=== PATIENT | male | born 2005 | race Caucasian/White ===

== ENCOUNTER 2024-10-27 15:10 | Outpatient (AMB) | payer MEDICAID, SELFPAY ==
--- NOTE | 2024-10-27 13:56 | MHC.OFFVIS ---
Vital Signs 10/27/24 15:44 Height 5 ft 11.85 in Weight 154 lb 4 oz BMI 21.0 BP 112/64 Blood Pressure Location Rt brachial Position Sitting Pulse 83 Pulse Source Pulse Oximeter Pulse Oximetry (%) 96 Oxygen Delivery Method Room Air Intake Visit Reasons: asthma Allergies No Known Allergies Allergy (Verified 10/27/24 15:45) HPI HPI asthma: Details: Iftikhar is a pleasant 19 year old male, former minimal tobacco smoker, current marijuana use with underlying asthma, environmental allergies and eczema. 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 Prior records indicate mild intermittent asthma. Last spirometry performed 2023, essentially normal. He reports asthma was diagnosed as a child, never requiring intubations or hospitalizations related to respiratory distress. He has been using Flovent and albuterol MDI with good effect. He does admit that he does not use Flovent consistently, however feels his respiratory symptoms are controlled at this time. He reports seasonal allergies, previously underwent allergen immunotherapy. He does not use any antihistamines. He does have a dog at home. He reports occupational exposures working in [employer], often using a mask to minimize dust exposures. He reports mother and sister with history of asthma. [facility] Social History (Updated 10/27/24 @ 15:48 by Yuki Dumont [facility]) Patient Tobacco Use Status: Former Tobacco user Review of Systems Const Denies chills, Denies excessive sweating, Denies fever(s), Denies headache(s) and Denies night sweats Eyes Denies dry eyes, Denies irritation and Denies itchy eyes ENT Reports Normal hearing present, Denies headache(s), Denies nasal congestion, Denies nasal discharge, Denies post nasal drip and Denies sore throat Card Denies chest pain, Denies chest pain at rest, Denies chest pain with activity, Denies claudication, Denies leg edema, Denies dyspnea, Denies dyspnea on exertion, Denies orthopnea and Denies paroxysmal nocturnal dyspnea Resp Denies chest congestion, Denies cough, Denies excessive phlegm production, Denies pain on inspiration, Denies pain with cough, Denies dyspnea, Denies dyspnea on exertion, Denies stridor and Denies wheezing Musc Denies myalgias Neuro Reports Normal hearing present and Denies headache(s) Endo Denies excessive sweating Benji/Lymph Denies lymphadenopathy Aller/Immun Denies itchy eyes, Denies seasonal rhinorrhea and Denies wheezing Physical Exam Vital Signs: Last Vital Signs Pulse 83 10/27/24 15:44 BP 112/64 10/27/24 15:44 Pulse Ox 96 10/27/24 15:44 Oxygen Delivery Method Room Air 10/27/24 15:44 BMI result Body Mass Index 21.0 Const General: cooperative, healthy appearing, comfortable, no acute distress, well developed and alert Orientation/consciousness: patient oriented x3 Limitations: no limitations HEENT Head: Yes normal to inspection, Yes normocephalic and Yes atraumatic Ears: hearing grossly normal bilaterally and external ears normal Eyes General: appearance normal, both eyes and all related structures Eyelids: Yes eyelids normal Sclerae: sclerae normal EOM: EOMs intact bilaterally Neck Neck: Yes normal visual inspection and Yes no lymphadenopathy Lymphatic: no lymphadenopathy noted Chest Chest palpation & inspection: normal inspection of the chest Resp Effort & Inspection: normal respiratory effort, able to speak in complete sentences, no audible wheezes, no cough, no stridor, not tachypneic, no tripod positioning and no use of accessory muscles Auscultation: clear to auscultation bilaterally Cardio Jugular venous distension: no JVD Rate: regular rate Rhythm: regular rhythm Skin Other: warm, dry General skin exam: no rashes or lesions noted Neuro General: patient oriented x3 Cranial nerves: Yes Normal hearing present Cognition (Neuro): normal cognition Gait exam (Neuro): Normal gait present Extrem General: Yes normal to inspection, Yes capillary refill normal, Yes no clubbing, cyanosis or edema and Yes no pedal edema Psych Appearance: grossly normal and well kempt Speech and movement: Normal speech and movement present and Clear speech present Affect: normal affect Attitude: cooperative Thought process: Normal thought process present Thought content: Normal thought content present Insight: Good insight present (Psych) Judgement: Good judgement present (Psych) Assessment & Plan Assessment & Plan (1) Asthma: Code(s): J45.909 - Unspecified asthma, uncomplicated Category: Medical (2) Environmental allergies: Code(s): Z91.09 - Other allergy status, other than to drugs and biological substances Category: Medical Plan Iftikhar presents for pulmonary evaluation a known history of asthma. At this time he reports symptoms are relatively controlled on Flovent and albuterol MDI, encouraged patient to consistently use Flovent. Will refill. Prior spirometry from June 2023 was essentially normal. Will send for full PFT. Will defer allergy testing at this time, as he feels his symptoms are mild. All questions were answered and patient is in agreement of the plan. Will follow-up in 3-6 months or sooner if needed. Orders: Orders PFT pulmonary function test Today J45.909 - Unspecified asthma, uncomplicated Medications: New fluticasone propionate 100 mcg/actuation 2 inhalations inhalation BID 60 ea 6RF albuterol sulfate 90 mcg/actuation 2 puffs inhalation Q6H PRN 1 ea 3RF shortness of breath or wheezing Coding Level of Care Code New Pt Level 3 (09124) Diagnoses Asthma J45.909 Environmental allergies Z91.09
[2024-10-27 15:44] VITALS: BP 112/64; PULSE 83; O2SAT 96; BMI 21.0
== END 2024-10-27 16:11 | disposition home or self-care (01) ==
LOC: HO.HPSW 15:10
PROVIDERS: PCP Pediatrics Pediatric Pulmonology; Visit Provider Nurse Practitioner Family
DX: J45.909 Unspecified asthma, uncomplicated (principal); Z91.09 Other allergy status, other than to drugs and biological substances
CPT/HCPCS: 99203

== ENCOUNTER → 2024-10-27 15:10 | Outpatient (BNVA) | payer MEDICAID, SELFPAY | PROVIDERS: PCP Pediatrics Pediatric Pulmonology; Visit Provider Nurse Practitioner Family | DX: J45.909 Unspecified asthma, uncomplicated (principal); F12.90 Cannabis use, unspecified, uncomplicated; Z91.09 Other allergy status, other than to drugs and biological substances; Z87.891 Personal history of nicotine dependence; Z79.899 Other long term (current) drug therapy | CPT/HCPCS: 99212 ==